=== PATIENT | female | born 1930 | race Caucasian/White ===

== ENCOUNTER → 2018-02-17 | Outpatient (CLI) | payer OTHER | LOC: FIMAGING 18:33 | PROVIDERS: ATTEND Nurse Practitioner | DX: S46.112A Strain of muscle, fascia and tendon of long head of biceps, left arm, initial encounter (principal) ==

== ENCOUNTER 2018-06-10 10:38 | Inpatient (IN) | payer OTHER ==
--- NOTE | 2018-06-09 20:34 | GHP ---
[f rep st] PREOP HISTORY AND PHYSICAL DATE OF ADMISSION: 06/10/2018 DATE OF SURGERY: 06/10/2018. CHIEF COMPLAINT: Right ankle and hindfoot pain. HISTORY OF PRESENT ILLNESS: Patient is an 88-year-old, history of progressive right ankle and hindfo ot pain. She is having significant limitations in her ability to ambulate secondary to her pain. PAST MEDICAL HISTORY: Positive for increased cholesterol and GERD. ALLERGIES: She is allergic to hydrocodone, which causes vomiting. MEDICATIONS: She lists no medicines on a regular basis. PAST SURGERY HISTORY: Positive for previous orthopedic surgery with bilateral knee replacements and wrist surgery. SOCIAL HISTORY: Negative for tobacco use. FAMILY HISTORY: Noncontributory. PHYSICAL EXAMINATION: GENERAL: She is alert and oriented x3, in no acute distress. HEENT: Head is normocephalic. Pupils equal, round, reactive to light. Extraocular eye movements intact. NECK: S upple. No JVD or lymphadenopathy. CHEST: Clear to auscultation. HEART: Regular rate and rhythm. No murmurs or gallops. ABDOMEN: Soft, nontender, nondistended. GENITAL: Deferred. RECTAL: Defe rred. BREASTS: Deferred. EXTREMITIES: Tenderness and diminution of motion in both her right ankle and subtalar joint. ASSESSMENT: Right ankle and subtalar arthritis. PLAN: The patient is scheduled to undergo a right total ankle arthroplasty and subtalar arthrodesis. /[id number]/MODL
[2018-06-10] MEDS ORDERED: LR 1,000 ML IV ONE (10:55)
[2018-06-10] MEDS ORDERED: LIDOCAINE 1% 2 ML INJ ID PRN (10:55)
[2018-06-10] MEDS ORDERED: BUPIVACAINE 0.25% 30 ML SDV ONE (11:00)
--- NOTE | 2018-06-10 11:28 | PDANEPAE ---
ANE History of Present Illness here for ankle arthroplasty ANE Past Medical History - Cardiovascular History Hx Hypertension: No Hx Arrhythmias: No Hx Chest Pain: No Hx Coronary Artery / Peripheral Vascular Disease: No Hx CHF / Valvular Disease: No Hx Palpitations: No - Pulmonary History Hx COPD: No Hx Asthma/Reactive Airway Disease: No Hx Recent Upper Respiratory Infection: No Hx Oxygen in Use at Home: No Hx Sleep Apnea: No Sleep Apnea Screening Result - Last Documented: Negative - Neurologic History Hx Cerebrovascular Accident: No Hx Seizures: No Hx Dementia: No - Endocrine History Hx Diabetes: No - Renal History Hx Renal Disorders: Yes Renal History Comment: PREV BLADDER REPAIR. FREQUENCY - Liver History Hx Hepatic Disorders: No - Neurological & Psychiatric Hx Hx Neurological and Psychiatric Disorders: No - Cancer History Hx Cancer: No - Congenital Disorder History Hx Congenital Disorders: No - GI History Hx Gastrointestinal Disorders: Yes Gastrointestinal History Comment: REFLUX - Other Health History Other Health History: OSTEOARTHRITIS - Chronic Pain History Chronic Pain: Yes (RT ANKLE) - Surgical History Prior Surgeries: LT HAMMERTOE REPAIR. CYRIL CATARACT. RT TOTAL KNEE 2004 WITH REVISION. LT TOTAL KNEE. 2011. YCRIL MORTONS NEUROMA. BLADDER REPAIR. ANE Review of Systems Review of Systems: - Exercise capacity METS (RN): 4 METS ANE Patient History - Allergies Allergies/Adverse Reactions: Iodinated Contrast- Oral and IV Dye Allergy (Verified 06/10/18 11:01) Anaphylaxis Opioids - Morphine Analogues Allergy (Verified 05/29/18 14:38) GI - Home Medications Home Medications: C/E/Zn/Cu/OM3/DHA/EPA/LUT/ZEAX [Preservision Areds 2 Softgel] 1 each PO BID 05/29 [Last Taken 1 Week Ago ~06/03/18] Carboxymethylcellulose 1% [Refresh Celluvisc (*)] 1 drop EACHEYE DAILY PRN 05/22 [Last Taken 2 Weeks Ago ~05/27/18] Omeprazole 20 mg PO DAILY 05/22/18 [Last Taken Unknown] celeCOXIB [Celebrex (*)] 200 mg PO BID 05/22/18 [Last Taken 06/05/18] - NPO status NPO Since - Liquids (Date): 06/10/18 NPO Since - Liquids (Time): 06:30 NPO Since - Solids (Date): 06/09/18 NPO Since - Solids (Time): 22:00 - Anes Hx Anes Hx: no prior problems - Smoking Hx Smoking Status: Former smoker - Alcohol Use Alcohol Use: Rarely - Family Anes Hx Family Anes Hx: none ANE Labs/Vital Signs - Vital Signs Blood Pressure: 166/81 Heart Rate: 71 Respiratory Rate: 18 O2 Sat (%): 92 Height: 156.21 cm Weight: 68.039 kg ANE Physical Exam - Airway Neck exam: FROM Mallampati Score: Class 2 Mouth exam: normal dental/mouth exam - Pulmonary Pulmonary: no respiratory distress, clear to auscultation - Cardiovascular Cardiovascular: regular rate and rhythym, no murmur, rub, or gallop - ASA Status ASA Status: II ANE Anesthesia Plan Anesthesia Plan: general endotracheal anesthesia, GA w LMA Regional Anesthesia: adductor canal FNB, popliteal SNB
[2018-06-10] MEDS ORDERED: MIDAZOLAM 2 MG/2 ML VIAL IVP ONE (11:29)
[2018-06-10] MEDS ORDERED: fentaNYL 100 MCG/2 ML INJ ONE ×2 (11:36→13:49)
[2018-06-10] MEDS ORDERED: ceFAZolin 2 GM/DEXTROSE 100 ML IV ONE (11:53)
--- NOTE | 2018-06-10 11:57 | PDHPUP ---
History & Physical Update H&P update statement: This history and physical update is based on an assessment of the patient which was completed after admission or registration (within 24 hours), but prior to the surgery/procedure. H&P update: H&P reviewed & patient examined (none), no change in patient's condition since H&P completed
[2018-06-10] MEDS ORDERED: PROPOFOL 200 MG/20 ML VIAL ONE (12:12)
[2018-06-10] MEDS ORDERED: PHENYLEPHRINE HCL 100 MCG/ML SYR ONE (12:55)
[2018-06-10] MEDS ORDERED: ONDANSETRON 4 MG/2 ML VIAL ONE (13:21)
[2018-06-10] MEDS ORDERED: DEXAMETHASONE 4 MG/ML VIAL ONE (13:21)
[2018-06-10] MEDS ORDERED: ONDANSETRON 4 MG/2 ML VIAL IVP PRN ×2 (14:38→14:39)
[2018-06-10] MEDS ORDERED: HYDROmorphONE/DILAUDID 1 MG/ML INJ IVP PRN (14:38)
[2018-06-10] MEDS ORDERED: DIAZEPAM 5 MG/ML 1 ML SYR IVP PRN (14:38)
[2018-06-10] MEDS ORDERED: fentaNYL 100 MCG/2 ML INJ IVP PRN (14:38)
[2018-06-10] MEDS ORDERED: oxyCODONE IR 5 MG TAB PO PRN (14:38)
[2018-06-10] MEDS ORDERED: ACETAMINOPHEN 500 MG TAB PO PRN (14:38)
[2018-06-10] MEDS ORDERED: NALOXONE HCL 0.4 MG/ML INJ IVP PRN (14:38)
[2018-06-10] MEDS ORDERED: HYDROCODONE/APAP 5/325 TAB PO PRN (14:38)
--- NOTE | 2018-06-10 14:38 | POSTOPPROG ---
Post Op Note Date of Operation: 06/10/18 Surgeon: Jorge A Saleh Platen Press Feeder: Birgit Anesthesia: GET(General Endotracheal) Pre-op Diagnosis: R ankle arthrosis Post-op Diagnosis: same Procedure: R TAA Inf/Abcess present in the surg proc area at time of surgery?: No EBL: Minimal
--- NOTE | 2018-06-10 14:38 | POSTANESTH ---
Post Anesthetic Evaluation Cardiovascular Status: Normal, Stable, Similar to Pre-Op Cond Respiratory Status: Normal, Stable, Similar to Pre-op Cond. Level of Consciousness/Mental Status: Can Participate in Eval, Alert and Oriented Pain Control: Adequate, Prn Tx Ordered Nausea/Vomiting Control: Adequate, Prn Tx Ordered Complications Possibly Related to Anesthesia: None Noted
[2018-06-10] MEDS ORDERED: PROMETHAZINE HCL 25 MG/ML INJ IVP PRN (14:39)
[2018-06-10] MEDS ORDERED: CARBOXYMETHYLCELLULOSE 1% 0.4 ML DROPERETTE EACHEYE PRN (14:41)
[2018-06-10] MEDS ORDERED: D5W 1/2 NS W/ 20 KCl/L 1,000 ML IV SCH (14:45)
[2018-06-10] MEDS ORDERED: ROPIVACAINE 0.2% 1,100 MG in PUMP SET 1 EA NB SCH (15:00)
--- NOTE | 2018-06-10 16:29 | PDMN ---
Medical Necessity Medical necessity: Pt meets INPT criteria per and [facility] [place] Mus[facility] Surgery [facility] (TAA, Medicare Inpt Only surgery).
[2018-06-10] MEDS: ceFAZolin 2 GM/DEXTROSE 100 ML IV SCH (21:01)
[2018-06-10] MEDS: PRESERVISION AREDS2 FORMULA EYE VIT 1 EACH PO SCH (21:01)
[2018-06-11] MEDS: ceFAZolin 2 GM/DEXTROSE 100 ML IV SCH (05:53)
--- NOTE | 2018-06-11 06:19 | SOAPPROG ---
SOAP Progress Note Assessment/Plan: Assessment: S/P TAA No pain - nerve block functioning well Brian po + U/O Splint intact, no D/C Toes with good cap refill Decreased sensation d/t nerve block Plan: OOB/PT D/C later today 06/11/18 06:16 Objective: Vital Signs Temp Pulse Resp BP Pulse Ox 36.8 C 68 17 132/64 H 95 06/11/18 03:17 06/11/18 03:17 06/11/18 03:17 06/11/18 03:17 06/11/18 03:17 06/10/18 06/11/18 06/12/18 05:59 05:59 05:59 Intake Total 1875 882 Output Total 1760 Balance 115 882 ICD10 Worksheet Patient Problems: Problems Problem Status Onset knee arthritis Active
[2018-06-11 07:35] VITALS: BP 127/76
[2018-06-11] MEDS: oxyCODONE IR 5 MG TAB PO PRN ×2 (07:56→10:37)
[2018-06-11] MEDS: PRESERVISION AREDS2 FORMULA EYE VIT 1 EACH PO SCH (07:56)
[2018-06-11] MEDS ORDERED: PANTOPRAZOLE SODIUM 40 MG TAB PO SCH (09:00)
[2018-06-11] MEDS ORDERED: ENOXAPARIN 40 MG/0.4 ML SYR SC SCH (09:00)
--- NOTE | 2018-06-11 09:04 | GOP ---
[f rep st] OPERATIVE REPORT DATE OF OPERATION: 06/10/2018 SURGEON: Jorge A Saleh MD SOFT SUGAR SUPERVISOR: REBECCA Mitchell, who was necessary for the completion of the surgery. ANESTHESIA: General plus indwelling popliteal and saphenous nerve blocks performed by the anesthesio logist at my request for postoperative pain management. PREOPERATIVE DIAGNOSIS: Right ankle arthrosis. POSTOPERATIVE DIAGNOSIS: Right ankle arthrosis. PROCEDURE PERFORMED: 1. Right implant total ankle arthroplasty. 2. Intraoperative use of fluoroscopy. FINDINGS: ESTIMATED BLOOD LOSS: Minimal. INDICATIONS: The patient is a healthy 88-year-old community ambulator with significant ankle pain. C linically and radiographically, she is noted to have advanced arthrosis. This was significantly limit ing her activities. After a thorough discussion regarding treatment options, including arthrodesis an d total ankle arthroplasty, the patient elected to undergo total ankle arthroplasty. The patient ackn owledged she understood the potential risks of the operation including, but not limited to bleeding, infection, neurovascular damage, loss or limit of function, pain or functional limitations despite op erative treatment, implant failure requiring revision, removal, or conversion to arthrodesis, amputat ion, and anesthetic risks. She acknowledged she understood the potential risks, planned procedure, po stoperative plan well, and had all questions answered prior to surgery. She gave consent for the oper ative procedure. DESCRIPTION OF PROCEDURE: The patient was brought into the operating after IV antibiotics were admin istered. Indwelling popliteal and saphenous nerve blocks were performed by the anesthesiologist in pr eop holding at my request for postoperative pain management. She was placed in a supine position wher e a general anesthetic was administered. A tourniquet was placed on the right thigh, bump underneath the right hip and shoulder, and right lower leg was prepped and draped in standard sterile fashion. A fter marking the incision, Salazar wrap exsanguination, tourniquet was inflated to 250. An anterior appro ach to the ankle was utilized for exposure. Skin and subcutaneous tissue were sharply incised. The ex tensor retinaculum was incised in line with the skin incision. The interval between the tibialis ante rior and extensor hallucis longus was utilized for exposure. Care was taken to avoid damage to the ne urovascular bundle. The capsule was anteriorly incised and reflected medially and laterally. End-stag e arthritic changes were noted in the ankle. Chisel was utilized to remove prominent osteophytes casa g the anterior aspect of the distal tibia. The cutting guide from the Integra farnaz total ankle was applied. The distal extent for the cutting block was confirmed, as well as varus and valgus alignmen t. An initial pin was placed approximating the definitive length. Sagittal plane alignment was checke d with the alignment genny and adjusted until being optimal. The definitive adjustments were made utili zing fluoroscopic guidance for tibial height, rotation, and varus/valgus alignment, as we ll as medial and lateral translation. After these have all been performed, the distal cutting block w as pinned into place. A transverse saw was utilized to make the transverse tibial plafond cut. After pre-drilling the medial gutter holes, the jig was removed and a reciprocating saw was utilized to analisa e the medial gutter cut. Cut bone portions were removed with osteotome and rongeur. The resection janis de was inserted and the cut was found to be favorable. The talar cutting guide was then applied and d istraction was accomplished through the cut block, ensuring adequate tensioning and ligamentous dorothy ce had ensued. After confirming the favorable position fluoroscopically, the transverse cut block was pinned into place and the saw was utilized to remove the talar dome cut. The guide was removed and t he cut portion of bone removed with a rongeur. The surface was further smoothed with a saw. The poste rior and anterior chamfer cutting guide was initially applied. After confirming optimal placement flu oroscopically, it was pinned into place. A saw was utilized to create the posterior chamfer cut. The posterior chamfer guide was removed over the smooth pin and the anterior chamfer cutting guide was th en placed. The Milling device was utilized to remove the anterior talar bone. The talar PEG guide was then inserted and drilled. A drill was utilized to create the pegs in the anterior aspect of the willa us for the talar component. A rongeur was used to remove prominent osteophytes off the talar neck whi ch remained after the chamfer cutting guide was finished. A size 1 talar trial was impacted into plac e and found both clinically and fluoroscopically to have favorable positioning with excellent apposit ion to the talus. A size 1X tibial implant was measured for and a 1X tibial tray with 7 mm polyethyle ne trial was placed with favorable positioning noted fluoroscopically. Appropriate stability was note d clinically. Through the tibial trial, the anterior tibial oblique holes were drilled. Definitive si ze 1X tibial component was impacted into place and found to have excellent position fluoroscopically. The size 1 talar component was then impacted into place and similarly found to have excellent fit. A 7 mm polyethylene was inserted. The ankle was taken through range of motion, found to have favorable motion with good stability. Fluoroscopically, the components were noted to be well positioned. While initially there was a thought toward a subtalar arthrodesis, upon fluoroscopic and clinical evaluati on after insertion of the total ankle, it was not felt that the subtalar joint warranted arthrodesis. It was felt that the arthritis was such that minimizing the ankle pain would allow for favorable hermila n relief from the subtalar region as well. Attention was directed towards closure. The capsule and extensor retinaculum were reapproximated with 2-0 Vicryl suture in interrupted fashion. Subcutaneous tissue closed with 3-0 Vicryl suture in inter rupted fashion. Skin closed with 4-0 nylon interrupted vertical mattress sutures. Tourniquet was defl ated prior to our subcutaneous closure. No untoward bleeding was seen. The wounds were dressed with s terile Adaptic, 4x4, and Webril, and leg was placed in a below-knee splint. The patient tolerated the procedure well, was taken to the recovery room, extubated in stable condition postoperatively. All s ponge, needle, and instrument counts were reported to be correct. DRAINS: None. COMPLICATIONS: None. PLAN: The patient will be admitted for medical management and gait training. She will be nonweightbe aring on her operative extremity. /[id number]/MODL
--- NOTE | 2018-06-11 11:21 | PDPAINCON ---
Pain Management Consultation Patient referred by : Delfino - Subjective Pain is: under control Activity: able to ambulate - Objective Technique: continuous peripheral nerve block Site: sciatic Continuous infusion: ropivicaine Strength (%): 6 Catheter site: clean, dry, intact, no erythema/edema/exudate Sensory and motor exam: consistent with block, block has resolved, no apparent ill effects (SS AC has resolved, pt w/ medial ankle pain c/w saphenous distribution) Vital signs: stable - Assessment/Plan Assessment/Plan: pain well-controlled, continue current mgmt Additional comments: Pt to d/c home, OnQ for additional 3 days, will continue phone f/u.
--- NOTE | 2018-06-11 13:48 | ASMTLACE ---
LACE Length of stay for Answers: 2 days current admission Acuity / Level of Answers: Yes Care: Did the patient have an inpatient admission? Comorbidities - select Answers: Opioid dependence all that apply / Chronic pain Other Notes: GERD # of Emergency department Answers: 0 visits in the last 6 months Score: 10 Date Signed: 06/11/2018 01:47 PM Electronically Signed By:ZIA Meza
--- NOTE | 2018-06-11 13:49 | ASMTCMCOM ---
CM Note CM Note Notes: PT rec home. Pt medically stable for d/c, no CM d/c needs identified. Date Signed: 06/11/2018 01:48 PM Electronically Signed By:ZIA Meza
--- NOTE | 2018-06-16 11:23 | GDS ---
[f rep st] DISCHARGE SUMMARY ADMISSION DIAGNOSIS: Osteoarthritis right ankle. HISTORY RELATIVE TO ADMISSION: The patient is a very healthy 88-year-old with a history of progressi ve right ankle pain. Clinically and radiographically, she was noted to have end-stage ankle arthriti s. She presented for elective total ankle arthroplasty. HOSPITAL COURSE: The patient was brought in as a direct admit for the aforementioned operative proce dure. She was taken to the operating room. The postoperative course was unremarkable. The patient was taken to the regular med/surg floor in stable condition postoperatively. She did well from a herimla n standpoint secondary to an indwelling nerve block. Postop day 1, she was in satisfactory condition for discharge home as her pain was tolerable, and she was stable medically and doing well from an am bulatory status. DISPOSITION: Discharged home. Diet regular. Nonweightbearing operative extremity. Followup will b e in 1 week. /[id number]/MODL
--- NOTE | 2018-06-20 10:42 | GDS ---
[f rep st] DISCHARGE SUMMARY ADMISSION DIAGNOSIS: Right ankle arthrosis. DISCHARGE DIAGNOSIS: Right ankle arthrosis. OPERATIONS: Right total ankle arthroplasty. CONSULTATIONS: Physical therapy. HISTORY OF PRESENT ILLNESS: The patient is an 88-year-old very active woman with history of progress junito ankle pain and end-stage ankle arthritis. HOSPITAL COURSE: The patient was brought in as a direct admit for the aforementioned operative proce dure. She was transferred to the med/surgical floor in stable condition. Pain was well controlled w ith nerve block. On postoperative day 1, she was in satisfactory condition for discharge home as her pain was tolerable with oral medications. She had safely progressed to ambulation from a therapy [place] and was medically stable. DISCHARGE DISPOSITION: Discharged home. DISCHARGE INSTRUCTIONS/FOLLOWUP: 1. Diet: Regular. 2. Activity: Nonweightbearing right upper extremity. 3. Follow up in 1 week. /[id number]/MODL
== END 2018-06-11 12:11 | disposition home or self-care (01) | DRG 469 ==
LOC: F3N 10:38
PROVIDERS: ADMIT Orthopaedic Surgery Foot and Ankle Surgery; ATTEND Orthopaedic Surgery Foot and Ankle Surgery
PROC: 0SRF0JZ Replacement of Right Ankle Joint with Synthetic Substitute, Open Approach (ICD-10-PCS; principal; 2018-06-10 12:30)
DX: M19.071 Primary osteoarthritis, right ankle and foot (principal); Z96.653 Presence of artificial knee joint, bilateral; K21.9 Gastro-esophageal reflux disease without esophagitis
CPT/HCPCS: 97116-GP; 97161-GP; G8978-GP-CI; G8979-GP-CI; G8980-GP-CI; J0690; J1100; J1650; J2250; J2370; J2405; J2704; J2795; J3010

== ENCOUNTER 2019-05-12 10:17 | Inpatient (IN) | payer OTHER | END 2019-05-14 16:42 | LOC: F3N 10:17 ==